=== PATIENT | female | born 1950 | race American Indian/Alaskan Native ===

== ENCOUNTER 2017-02-17 06:34 | Day surgery (SDC) | payer MEDICARE, OTHER ==
[2017-02-17 07:23] VITALS: TEMP 96.9
--- NOTE | 2017-02-17 08:36 | CP.SDSHP ---
Same Day Surgery H & P - History Proposed Procedure: colonoscopy Pre-Op Diagnosis: fecal occult blood loss - Previous Medical/Surgical History Cardiac: Other (hyperlipidemia, Gerd, diverticulosis) Endocrine/Metabolic: Diabetes, Obesity Previous Surgical History: Lap Benita. KAYLA/BSO - Allergies Allergies: Allergies Penicillins Allergy (Verified 02/17/17 07:00) RASH - Physical Exam Vital Signs: Vital Signs 02/17/17 02/17/17 06:50 08:31 Temperature 96.9 F L 96.9 F L Pulse Rate 79 79 Respiratory 20 20 Rate Blood Pressure 132/63 132/63 O2 Sat by Pulse 95 95 Oximetry Mental Status: Alert & Oriented x3 Neuro: WNL Heart: WNL Lungs: WNL GI: WNL - Impression Impression: fecal occult blood loss Pt. Evaluated Today:Candidate for Anesthesia & Procedure: Yes - Date & Time Date: 02/17/17 Time: 08:36 Short Stay Discharge - Short Stay Discharge Admitting Diagnosis/Reason for Visit: DIVERTICULOSIS / F/H MALIGNANCY Disposition: HOME/ ROUTINE
[2017-02-17] MEDS ORDERED: Propofol 10 mg/ml Inj (20 ML) ONE ×2 (08:43→08:49)
[2017-02-17 09:09] VITALS: O2SAT 100
[2017-02-17 09:58] VITALS: BP 119/57; PULSE 61; RESP 15
== END 2017-02-17 10:11 | disposition home or self-care (01) ==
LOC: C.ENDO 06:34
PROVIDERS: ATTEND Internal Medicine Gastroenterology
DX: K57.30 Diverticulosis of large intestine without perforation or abscess without bleeding (principal); K64.8 Other hemorrhoids; R19.5 Other fecal abnormalities; Z80.0 Family history of malignant neoplasm of digestive organs
CPT/HCPCS: 45378; 82948; J2704